=== PATIENT | female | born 1935 | race Caucasian/White ===

== ENCOUNTER 2018-04-29 22:36 | Inpatient (IN) | payer MEDICARE, BC ==
[~2018-04-29] VITALS: Ht 154.9 cm; Wt 54.6 kg
--- NOTE | 2018-04-30 00:14 | NUR ---
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
[2018-04-30 01:07] LABS: BASOPHILS 0.6 % (0-2); EOSINOPHILS 3.2 % (0-7); HEMOGLOBIN 11.1 g/dL (12-16); IMMATURE GRANULOCYTES 0.3 % (0-5); LYMPHOCYTES 14.4 % (15-50); MCH 29.3 pg (26.0-34.0); MCHC 32.6 g/dL (31.0-37.0); MCV 89.7 fL (80.0-100.0); MEAN PLATELET VOLUME 9.3 fL (7.4-10.4); MONOCYTES 13.8 % (2-11); NEUTROPHILS 67.7 % (40-80); RBC 3.79 10x6/uL (4.00-5.40); RDW 14.8 % (11.5-14.5)
[2018-04-30 01:09] LABS: PLATELET COUNT 170 10x3/uL (130-400)
[2018-04-30 01:20] LABS: ANION GAP 19.3 mmol/L (8-16); BILIRUBIN - TOTAL 0.43 mg/dL (0.2-1.3); CALCIUM 8.4 mg/dL (8.5-10.1); CARBON DIOXIDE 24.8 mmol/L (21.0-32.0); CREATININE - SERUM 9.3 mg/dL (0.6-1.3); POTASSIUM - SERUM 5.1 mmol/L (3.5-5.1); PROTEIN - SERUM 6.2 g/dL (6.4-8.2)
--- NOTE | 2018-04-30 01:23 | NUR ---
REPORT GIVEN TO REINA
--- NOTE | 2018-04-30 01:45 | NUR ---
RECEIVED PT FROM ER STAFF. PT IS VERY CONFUSED. PT IS ALERT TO PERSON. BED IN LOW POSITION WITH CALL LIGHT IN REACH. WILL CONTINUE TO MONITOR PT AND FOLLOW PLAN OF CARE.
[2018-04-30 02:42] VITALS: BP 145/73; BMI 27.5
--- NOTE | 2018-04-30 06:41 | NUR ---
PT IS ALERT LAYING IN BED. PT IS COMPLAINING OF RT SHOULDER PAIN AND RT HIP PAIN. WILL PASS THIS INFORMATION AT SHIFT REPORT TO NURSE TO SEE IF ROUNDING DOCTOR WILL ADDRESS. PT IS STILL CONFUSED. PT IS ALERT TO PERSON ONLY. BED IN LOW POSITION WITH CALL LIGHT IN REACH. WILL CONTINUE TO MONITOR PT AND FOLLOW PLAN OF CARE.
--- NOTE | 2018-04-30 08:14 | NUR ---
AM ROUNDS COMPLETED. VSS, PT ORIENTED TO PERSON ONLY. PT CONFUSED, STATES SHE FELL AT HOME AND HER LEFT SHOULDER IS HURTING. WILL NOTIFY HER PROVIDER OF THIS NEW FINDING. PT CURRENTLY RESTING IN BED WILL CTM. CL IN [place]EN[place]Z, BED IN LOW.
--- NOTE | 2018-04-30 13:32 | NUR ---
PT IN DIALYSIS. KAMILAH RANDHAWA, ORDERED NEW MEDS. MEDS WILL BE ADMINISTERED AFTER DIALYSIS. PT DENIES NEED FOR PAIN AT THIS TIME. WILL CPOC. CL IN REACH, BED IN LOW, FAMILY AT BEDSIDE.
[2018-04-30 14:10] VITALS: Ht 154.9 cm; Wt 54.6 kg
--- NOTE | 2018-04-30 16:56 | NUR ---
Rehab Note- Acute Inpatient Rehab prescreen order received. The patient is a LTC resident in a facility in [place]- would recommend d/c back to LTC or SNF when medically stable and ready for discharge. Thank you for this referral! Purvi Crouch RN Clinical Liaison, [facility]
--- NOTE | 2018-04-30 17:06 | NUR ---
PT DIALYSIS COMPLETED. IN AND OUT CATH ORDERED BY THE PROVIDER. PT REFUSED AT THIS TIME. STATES SHE WANTS TO REST. SCD ON PT. ASSESSED PT COLOSTOMY BAG, WNL. EMPTIED THIS AM. WILL CPOC. CL IN REACH, BED IN LOW. SR UP X2. WILL CTM.
--- NOTE | 2018-04-30 17:47 | MORECARE ---
CASE MANAGEMENT DISCHARGE SUMMARY PATIENT: THO SAEZ UNIT: [id number] ADM DATE: 04/30/18 AGE: 83 : 34 SEX: F ROOM/BED: D.2135 AUTHOR: MACARENA PERDOMO PHYSICIAN: REFERRING PHYSICIAN: ALEXA MANCUSO MD DATE OF SERVICE: 04/30/18 Discharge Plan Patient Name: THO SAEZ [facility] [facility] 1935 Planned Disposition: Nursing Facility [facility] Anticipated Discharge Date: Discharge Date: Expected LOS: Initial Reviewer: [email or web address] Initial Review Date: 04/30/2018 Generated: 04/30/18 6:47 pm Patient Name: THO SAEZ Page 43641 at 2492 All edits/amendments must be made on the electronic document DICTATION DATE: 04/30/181746 MICROCOMPUTER TECHNICIAN: MAXIMO 04/30/181746 RPT#: [id number] DC DATE: STATUS: ADM IN [facility] [address] [place] [address] END OF REPORT
--- NOTE | 2018-04-30 17:55 | MORECARE ---
CASE MANAGEMENT DISCHARGE SUMMARY PATIENT: THO SAEZ UNIT: [id number] ADM DATE: 04/30/18 AGE: 83 : 34 SEX: F ROOM/BED: D.2134 AUTHOR: MACARENA PERDOMO PHYSICIAN: REFERRING PHYSICIAN: ALEXA MANCUSO MD DATE OF SERVICE: 04/30/18 Discharge Plan Patient Name: THO SAEZ Facility: [facility]:[place] : 1935 Planned Disposition: Nursing Facility [facility]IO [facility] Anticipated Discharge Date: Discharge Date: Expected LOS: Initial Reviewer: [email or web address] Initial Review Date: 04/30/2018 Generated: 04/30/18 6:55 pm DCPIA - Discharge Planning Initial Assessment Updated by [email or web address]: George Henry on 04/30/18 5:49 pm * Is the patient Alert and Oriented? Yes * How many steps to enter\exit or inside your home? NONE * PCP [facility] [place] * Pharmacy [facility], [place] * Preadmission Environment Chemical Equipment Controller Senior Care * Facility Name [facility], [place] * ADLs Partial Dependent * Partial ADLs (Assistance needed) Ambulation Bathing Dressing Medication Management Transfers * Equipment Walker Wheelchair * Other Equipment ALL MEDICAL EQUIPMENT PROVIDED BY FACILITY * List name and contact numbers for known caregivers / representatives who currently or will assist patient after discharge: SANDY CHINCHILLA DTR, * Verbal permission to speak to the caregivers and representatives has been obtained from the patient. Yes * Community resources currently utilized Other * Please name any agencies selected above. [facility]IENT [facility]IALYSIS, [place], MWF, 1000 AM, RETIREMENT TRANSPORTATION * Additional services required to return to the preadmission environment? No * Can the patient safely return to the preadmission environment? Yes * Has this patient been hospitalized within the prior 30 days at any hospital? No Last DP export: 04/30/18 4:47 pm Patient Name: THO SAEZ Page 63526 at 1816 All edits/amendments must be made on the electronic document DICTATION DATE: 04/30/181753 AIR MOVING TECHNICIAN: MAXIMO 04/30/181753 RPT#: [id number] DC DATE: STATUS: ADM IN [facility] [address] [facility] [place] [address] END OF REPORT
--- NOTE | 2018-04-30 18:04 | MORECARE ---
CASE MANAGEMENT DISCHARGE SUMMARY PATIENT: THO SAEZ UNIT: [id number] ADM DATE: 04/30/18 AGE: 83 : 34 SEX: F ROOM/BED: D.8246 AUTHOR: LEANNE,DOC PHYSICIAN: REFERRING PHYSICIAN: ALEXA MANCUSO MD DATE OF SERVICE: 04/30/18 Discharge Plan Patient Name: THO SAEZ Facility: [facility]:[place] : 1935 Planned Disposition: Nursing Facility [facility] Cert Anticipated Discharge Date: Discharge Date: Expected LOS: Initial Reviewer: [email or web address] Initial Review Date: 04/30/2018 Generated: 04/30/18 7:04 pm Comments DCP- Discharge Planning Updated by [email or web address]: George Henry on 04/30/18 4:[address] Patient Name: THO SAEZ Admission Status: ER Accout number: [id number] Admission Date: 04-30-2018 : 1935 Admission Diagnosis: Attending: ALEXA MANCUSO Current LOS: 1 Anticipated DC Date: Planned Disposition: Nursing Facility [facility] Cert Primary Insurance: MEDICARE A & B PLANNED EXTERNAL PROVIDER: [facility], MEDICARE REHAB BED Discharge Planning Comments: CM RECEIVED ORDER FOR INPATIENT REHAB PRESCREEN. CM MET WITH PT AND DAUGHTER IN LAW IN ROOM TO DISCUSS DISCHARGE PLANNING AND NEEDS. THO SAEZ provided verbal consent to discuss current and ongoing needs with/in the presence of: TERA IN LAW, CLAUDIA FERRARO. PT REPORTS LIVING AT [facility] FOR PAST 4 YEARS PT HAS WALKER AND WHEELCHAIR, PT TRANSFERS TO WHEELCHAIR WITH HELP AND WALKS VERY LITTLE. PT'S DAUGHTER IN LAW REPORTS THE ALF WAS TRYING TO GET PT TO WALK MORE AND STAY OUT OF THE WHEELCHAIR MUCH POSSIBLE. CM DISCUSSED AVAILABILITY OF HOME HEALTH, REHAB SERVICES AND MEDICAL EQUIPMENT. PT REPORTS SHE CAN AND DOES GET REHAB AT [facility] AND WILL RETURN THERE AT DISCHARGE. PT'S DAUGHTER IN LAW AGREES AND WOULD LIKE FOR PT TO RECEIVE THERAPY AT THE ALF IF SHE QUALIFIES FOR IT. [facility] TO PROVIDE TRANSPORT FOR DISCHARGE BACK TO THE ALF. PT GOES TO DIALYSIS IN [place] ON MWF, 1000AM SCHEDULE, TRANSPORTED BY ALF. CM CALLED AN AT [facility], , WHO VERIFIED PT IS IN STEAM TURBINE OPERATOR CARE AND WILL RETURN TO SKILLED BED AT DISCHARGE. FOR DISCHARGE TO SKILLED BED AT [facility], FAX DISCHARGE INSTRUCTIONS TO [facility] AT [phone]. NURSE REPORT TO BE CALLED TO [facility] AT [phone]. PT TO TRANSPORT VIA ALF VAN. Laser Beam Color Scanner Operator: George Henry DCPIA - Discharge Planning Initial Assessment Updated by [id number]: George Henry on 04/30/18 5:49 pm * Is the patient Alert and Oriented? Yes * How many steps to enter\exit or inside your home? NONE * PCP [facility], [place] * [facility] [place] * Preadmission Environment Longterm Assisted * Facility Name [facility], [place] * ADLs Partial Dependent * Partial ADLs (Assistance needed) Ambulation Bathing Dressing Medication Management Transfers * Equipment Walker Wheelchair * Other Equipment ALL MEDICAL EQUIPMENT PROVIDED BY FACILITY * List name and contact numbers for known caregivers / representatives who currently or will assist patient after discharge: SANDY CHINCHILLA DTR, * Verbal permission to speak to the caregivers and representatives has been obtained from the patient. Yes * Community resources currently utilized Other * Please name any agencies selected above. OUTPATIENT DIALYSIS, [place], MWF, 1000 AM, ALF TRANSPORTATION * Additional services required to return to the preadmission environment? No * Can the patient safely return to the preadmission environment? Yes * Has this patient been hospitalized within the prior 30 days at any hospital? No Last DP export: 04/30/18 4:55 pm Patient Name: THO SAEZ Page 41287 at 1804 All edits/amendments must be made on the electronic document DICTATION DATE: 04/30/181802 GEODETIC ADVISOR: MAXIMO 04/30/181802 RPT#: [id number] [place] DATE: STATUS: ADM IN [facility] [address] [place] [address] END OF REPORT
--- NOTE | 2018-04-30 19:06 | NUR ---
Received patient in bed resting, oxygen not on, on room air, pulse ox = 92% Alert and oriented to person only, not to place, time, or situation. Colostomy bag in place. Telemetry on, rhythm SR, HR in the 70s/min. Has Left forearm fistula with dressing C/D/I. PIV in underside of right wrist. Has oxygen off, on rrom air, pulse ox = 92% No voiced concerns at this time. Respirations easy and regular, no signs of distress.
--- NOTE | 2018-04-30 23:25 | NUR ---
Resting quietly in bed, eyes closed, respirations easy and regular, deemed to0m be sleeping.
[2018-05-01] VITALS: BP 126/76
[2018-05-01 04:00] VITALS: BP 156/78
[2018-05-01 06:18] LABS: HEMATOCRIT 37.2 % (36.0-48.0); HEMOGLOBIN 12.5 g/dL (12-16); LYMPHOCYTES 13.8 % (15-50); MCH 30.7 pg (26.0-34.0); MCHC 33.6 g/dL (31.0-37.0); MCV 91.4 fL (80.0-100.0); MEAN PLATELET VOLUME 10.6 fL (7.4-10.4); NEUTROPHILS 76.8 % (40-80); PLATELET COUNT 156 10x3/uL (130-400); RBC 4.07 10x6/uL (4.00-5.40); RDW 14.8 % (11.5-14.5)
[2018-05-01 06:25] LABS: WBC 9.3 10x3/uL (4.8-10.8)
[2018-05-01 08:15] VITALS: BP 134/50
[2018-05-01 09:12] LABS: ALBUMIN 3.4 g/dL (3.4-5.0); BILIRUBIN - TOTAL 0.58 mg/dL (0.2-1.3); CARBON DIOXIDE 24.6 mmol/L (21.0-32.0); CREATININE - SERUM 7.6 mg/dL (0.6-1.3); MAGNESIUM - SERUM 2.1 mg/dL (1.8-2.4); POTASSIUM - SERUM 4.6 mmol/L (3.5-5.1); PROTEIN - SERUM 6.7 g/dL (6.4-8.2)
--- NOTE | 2018-05-01 09:21 | NUR ---
NO NEEDS OR C/O VOICED. CALL LIGHT IN REACH. WILL MONITOR.
--- NOTE | 2018-05-01 10:10 | NUR ---
PATIENT HAS FREQUENT COUGH. FAMILY SAYS IT STARTED FRIDAY. PATIENT C/O RIGHT SIDE PAIN WITH COUGH. EXPIRATORY WHEEZES HEARD IN RUL.
--- NOTE | 2018-05-01 11:32 | CN ---
PATIENT NAME:THO SAEZ MEDICAL RECORD: [id number] : 33 LOCATION:[facility] D.2135 ADMIT DATE: 04/30/18 ACCOUNT: [id number] CONSULTING PHYSICIAN: JAMISON ASH MD REFERRING PHYSICIAN: ALEXA MANCUSO MD DATE OF CONSULTATION: 04/30/2018 IDENTIFYING DATA: The patient is 83 years old and she is admitted to the hospital on a voluntary basis. CHIEF COMPLAINT: Confusion. HISTORY OF PRESENT ILLNESS: The patient is here from a halfway. She apparently has end-stage renal disease and is receiving dialysis. She has been acutely confused. She has limited insight. She does have a history of stroke as well as a preexisting diagnosis of dementia. MENTAL STATUS EXAMINATION: The patient is partially oriented. She is cooperative, but not out of control. She has no thoughts of harming herself or others. The patient is not acutely dangerous, but does need supervision. There are no psychotic symptoms and no thoughts of harming herself or others. ASSESSMENT: Dementia, type uncertain, probably vascular in nature. PLAN: The patient should be started on a cholinesterase inhibitor once medically stabilized and transferred back to the halfway. Obviously, given her advanced age, the presence of renal disease, established diagnosis of dementia, history of stroke, hypothyroidism, and hypertension, her prognosis in the long run is not good, but she clearly is in an environment where she receives 01-frsa-i-day care and there is no acute evidence of dangerousness now. She would not meet any kind of criteria for an inpatient psychiatric stay. Follow up should be with her primary care physician. TRANSINT:[id number] Voice Confirmation ID: [id number] DOCUMENT ID: [id number] JAMISON ASH MD at 1132 CC: [id number] DICTATION DATE: 04/30/18 1549 PRISON PSYCHIATRIST: 04/30/18 1656 ADM IN [place] [id number] [place] [address]
[2018-05-01 11:41] VITALS: BP 142/76
--- NOTE | 2018-05-01 14:36 | MORECARE ---
CASE MANAGEMENT DISCHARGE SUMMARY PATIENT: THO SAEZ UNIT: [id number] ADM DATE: 04/30/18 AGE: 83 : 34 SEX: F ROOM/BED: D.5274 AUTHOR: LEANNE,DOC PHYSICIAN: REFERRING PHYSICIAN: ALEXA MANCUSO MD DATE OF SERVICE: 05/01/18 Discharge Plan Patient Name: THO SAEZ Facility: [facility]:[place] : 1935 Planned Disposition: Longterm Facility Anticipated Discharge Date: 05/01/18 Discharge Date: Expected LOS: 1 Initial Reviewer: [id number] Initial Review Date: 04/30/2018 Generated: 05/01/18 3:36 pm Comments DCP- Discharge Planning Updated by [email or web address]: George Henry on 04/30/18 4:[address] Patient Name: THO SAEZ Admission Status: ER Accout number: [id number] Admission Date: 04-30-2018 : 1935 Admission Diagnosis: Attending: ALEXA MANCUSO Current LOS: 1 Anticipated DC Date: Planned Disposition: Nursing Facility [facility] Cert Primary Insurance: MEDICARE A & B PLANNED EXTERNAL PROVIDER: [facility], MEDICARE REHAB BED Discharge Planning Comments: CM RECEIVED ORDER FOR INPATIENT REHAB PRESCREEN. CM MET WITH PT AND DAUGHTER IN LAW IN ROOM TO DISCUSS DISCHARGE PLANNING AND NEEDS. THO SAEZ provided verbal consent to discuss current and ongoing needs with/in the presence of: TERA IN LAW, CLAUDIA FERRARO. PT REPORTS LIVING AT [facility] FOR PAST 4 YEARS PT HAS WALKER AND WHEELCHAIR, PT TRANSFERS TO WHEELCHAIR WITH HELP AND WALKS VERY LITTLE. PT'S DAUGHTER IN LAW REPORTS THE [facility] WAS TRYING TO GET PT TO WALK MORE AND STAY OUT OF THE WHEELCHAIR MUCH POSSIBLE. CM DISCUSSED AVAILABILITY OF HOME HEALTH, REHAB SERVICES AND MEDICAL EQUIPMENT. PT REPORTS SHE CAN AND DOES GET [facility]AB AT [facility] AND WILL RETURN THERE AT DISCHARGE. PT'S DAUGHTER IN LAW AGREES AND WOULD LIKE FOR PT TO RECEIVE THERAPY AT THE [facility] IF SHE QUALIFIES FOR IT. [facility] TO PROVIDE TRANSPORT FOR DISCHARGE BACK TO THE [facility]. PT GOES TO DIALYSIS IN [place] ON MWF, 1000AM SCHEDULE, TRANSPORTED BY [facility]. CM CALLED AN AT [facility], , WHO VERIFIED PT IS IN CARE HOME CARE AND WILL RETURN TO SKILLED BED AT DISCHARGE. FOR DISCHARGE TO SKILLED BED AT [facility], FAX DISCHARGE INSTRUCTIONS TO [facility] AT [phone]. NURSE REPORT TO BE CALLED TO [facility] AT [phone]. PT TO TRANSPORT VIA [facility] VAN. Boring Mill Operator: George Henry DCPIA - Discharge Planning Initial Assessment Updated by [id number]: George Henry on 04/30/18 5:49 pm * Is the patient Alert and Oriented? Yes * How many steps to enter\exit or inside your home? NONE * PCP [facility], [place] * Pharm[facility] [place] * Preadmission Environment Capsule Maker Detention * Facility Name [facility] [place] * ADLs Partial Dependent * Partial ADLs (Assistance needed) Ambulation Bathing Dressing Medication Management Transfers * Equipment Walker Wheelchair * Other Equipment ALL MEDICAL EQUIPMENT PROVIDED BY FACILITY * List name and contact numbers for known caregivers / representatives who currently or will assist patient after discharge: SANDY CHINCHILLA DTR, * Verbal permission to speak to the caregivers and representatives has been obtained from the patient. Yes * Community resources currently utilized Other * Please name any agencies selected above. OUTPATIENT DIALYSIS, [place], MWF, 1000 AM, [facility] TRANSPORTATION * Additional services required to return to the preadmission environment? No * Can the patient safely return to the preadmission environment? Yes * Has this patient been hospitalized within the prior 30 days at any hospital? No External Providers External Provider: [facility] Next Contact Date: 05/01/2018 Service Request Date: Service Type: Resolution: Reviewer: Comments: Last DP export: 04/30/18 5:04 pm Patient Name: THO SAEZ Page 70395 at 1436 All edits/amendments must be made on the electronic document DICTATION DATE: 05/01/181434 AUTO REFINISHER: MAXIMO 05/01/181434 RPT#: [id number] [place] DATE: STATUS: ADM IN [facility] [address] [place] [address] END OF REPORT
--- NOTE | 2018-05-01 15:58 | MORECARE ---
CASE MANAGEMENT DISCHARGE SUMMARY PATIENT: THO SAEZ UNIT: [id number] ADM DATE: 04/30/18 AGE: 83 : 34 SEX: F ROOM/BED: D.7298 AUTHOR: LEANNE,DOC PHYSICIAN: REFERRING PHYSICIAN: ALEXA MANCUSO MD DATE OF SERVICE: 05/01/18 Discharge Plan Patient Name: THO SAEZ Facility: [facility]:[place] : 1935 Planned Disposition: [facility]sp Facility Anticipated Discharge Date: 05/02/18 Discharge Date: Expected LOS: 2 Initial Reviewer: [email or web address] Initial Review Date: 04/30/2018 Generated: 05/01/18 4:57 pm Comments DCP- Discharge Planning Updated by [id number]: George Henry on 04/30/18 4:[address] Patient Name: THO SAEZ Admission Status: ER Accout number: [id number] Admission Date: 04-30-2018 : 1935 Admission Diagnosis: Attending: ALEXA MANCUSO Current LOS: 1 Anticipated DC Date: Planned Disposition: Nursing Facility [facility] Cert Primary Insurance: MEDICARE A & B PLANNED EXTERNAL PROVIDER: [facility], MEDICARE REHAB BED Discharge Planning Comments: CM RECEIVED ORDER FOR INPATIENT REHAB PRESCREEN. CM MET WITH PT AND DAUGHTER IN LAW IN ROOM TO DISCUSS DISCHARGE PLANNING AND NEEDS. THO SAEZ provided verbal consent to discuss current and ongoing needs with/in the presence of: TERA IN LAW, CLAUDIA FERRARO. PT REPORTS LIVING AT [facility] FOR PAST 4 YEARS PT HAS WALKER AND WHEELCHAIR, PT TRANSFERS TO WHEELCHAIR WITH HELP AND WALKS VERY LITTLE. PT'S DAUGHTER IN LAW REPORTS THE ALF WAS TRYING TO GET PT TO WALK MORE AND STAY OUT OF THE WHEELCHAIR MUCH POSSIBLE. CM DISCUSSED AVAILABILITY OF HOME HEALTH, REHAB SERVICES AND MEDICAL EQUIPMENT. PT REPORTS SHE CAN AND DOES GET REHAB AT [facility] AND WILL RETURN THERE AT DISCHARGE. PT'S DAUGHTER IN LAW AGREES AND WOULD LIKE FOR PT TO RECEIVE THERAPY AT THE ALF IF SHE QUALIFIES FOR IT. [facility] TO PROVIDE TRANSPORT FOR DISCHARGE BACK TO THE ALF. PT GOES TO DIALYSIS IN [place] ON MWF, 1000AM SCHEDULE, TRANSPORTED BY ALF. CM CALLED AN AT [facility], , WHO VERIFIED PT IS IN DETENTION CARE AND WILL RETURN TO SKILLED BED AT DISCHARGE. FOR DISCHARGE TO SKILLED BED AT [facility], FAX DISCHARGE INSTRUCTIONS TO [facility] AT [phone]. NURSE REPORT TO BE CALLED TO [facility] AT [phone]. PT TO TRANSPORT VIA ALF VAN. Modeling Agency Manager: George Henry DCPIA - Discharge Planning Initial Assessment Updated by [email or web address]: George Henry on 04/30/18 5:49 pm * Is the patient Alert and Oriented? Yes * How many steps to enter\exit or inside your home? NONE * PCP [facility] [place] * Pharm[facility] [place] * Preadmission Environment Waste Chopper Long-Term * Facility Name [facility] [place] * ADLs Partial Dependent * Partial ADLs (Assistance needed) Ambulation Bathing Dressing Medication Management Transfers * Equipment Walker Wheelchair * Other Equipment ALL MEDICAL EQUIPMENT PROVIDED BY FACILITY * List name and contact numbers for known caregivers / representatives who currently or will assist patient after discharge: SANDY CHINCHILLA DTR, * Verbal permission to speak to the caregivers and representatives has been obtained from the patient. Yes * Community resources currently utilized Other * Please name any agencies selected above. OUTPATIENT DIALYSIS, [place], MWF, 1000 AM, ALF TRANSPORTATION * Additional services required to return to the preadmission environment? No * Can the patient safely return to the preadmission environment? Yes * Has this patient been hospitalized within the prior 30 days at any hospital? No Last DP export: 05/01/18 1:36 pm Patient Name: THO SAEZ Page 14607 at 1558 All edits/amendments must be made on the electronic document DICTATION DATE: 05/01/181556 PRESS BOX CUSTODIAN: MAXIMO 05/01/181556 RPT#: [id number] [place] DATE: STATUS: ADM IN [facility] [address] [place] [address] END OF REPORT
--- NOTE | 2018-05-01 16:07 | MORECARE ---
CASE MANAGEMENT DISCHARGE SUMMARY PATIENT: THO SAEZ UNIT: [id number] ADM DATE: 04/30/18 AGE: 83 : 34 SEX: F ROOM/BED: D.8712 AUTHOR: LEANNE,DOC PHYSICIAN: REFERRING PHYSICIAN: ALEXA MANCUSO MD DATE OF SERVICE: 05/01/18 Discharge Plan Patient Name: THO SAEZ Facility: [facility]:[place] : 1935 Planned Disposition: Long-Term Facility Anticipated Discharge Date: 05/02/18 Discharge Date: Expected LOS: 2 Initial Reviewer: [id number] Initial Review Date: 04/30/2018 Generated: 05/01/18 5:06 pm Comments DCP- Discharge Planning Updated by [id number]: George Henry on 05/01/18 2:[address] Patient Name: THO SAEZ Admission Status: ER Accout number: [id number] Admission Date: 04-30-2018 : 1935 Admission Diagnosis:DISORIENTATION, UNSPECIFIED Attending: ALEXA MANCUSO Current LOS: 1 Anticipated DC Date: 05-02-2018 Planned Disposition: Long-Term Facility Primary Insurance: MEDICARE A & B PLANNED EXTERNAL PROVIDER:[facility], MEDICARE REHAB BED Discharge Planning Comments: CM SPOKE TO DR. HARRIS WHO INFORMED CM THAT PLANNED DISCHARGE IS FOR TOMORROW AFTER DIALYSIS. CM SPOKE TO PT IN ROOM, PT REPORTS SHE IS READY TO RETURN TO THE [facility] TOMORROW. IMPORTANT MESSAGE FROM MEDICARE PROVIDED AND EXPLAINED. CM CALLED YING AT [facility], , WHO VERIFIED PT WILL RETURN TO SKILLED BED AT DISCHARGE AND [facility] CAN ONLY ROTARY SHEAR CUTTER AT AROUND 1300 HOURS TOMORROW. RN [facility] CALLED DIALYSIS UNIT AND ENSURED PT IS NO THE LIST FOR EARLY DIALYSIS SHIFT IN THE MORNING. CM FAXED UPDATE TO [facility] AT [phone]. FOR DISCHARGE TO SKILLED BED AT [facility], FAX DISCHARGE INSTRUCTIONS TO [facility] AT [phone]. NURSE REPORT TO BE CALLED TO [facility] AT [phone]. PT TO TRANSPORT VIA [facility]. Baker Doughnut: George Henry DCP- Discharge Planning Updated by [id number]: George Henry on 04/30/18 4:[address] Patient Name: THO SAEZ Admission Status: ER Accout number: [id number] Admission Date: 04-30-2018 : 1935 Admission Diagnosis: Attending: ALEXA MANCUSO Current LOS: 1 Anticipated DC Date: Planned Disposition: Nursing Facility [facility] Primary Insurance: MEDICARE A & B PLANNED EXTERNAL PROVIDER: [facility], MEDICARE REHAB BED Discharge Planning Comments: CM RECEIVED ORDER FOR INPATIENT REHAB PRESCREEN. CM MET WITH PT AND DAUGHTER IN LAW IN ROOM TO DISCUSS DISCHARGE PLANNING AND NEEDS. THO SAEZ provided verbal consent to discuss current and ongoing needs with/in the presence of: DAUGHER IN LAW, CLAUDIA FERRARO. PT REPORTS LIVING AT [facility] FOR PAST 4 YEARS PT HAS WALKER AND WHEELCHAIR, PT TRANSFERS TO WHEELCHAIR WITH HELP AND WALKS VERY LITTLE. PT'S DAUGHTER IN LAW REPORTS THE [facility] WAS TRYING TO GET PT TO WALK MORE AND STAY OUT OF THE WHEELCHAIR MUCH POSSIBLE. CM DISCUSSED AVAILABILITY OF HOME HEALTH, REHAB SERVICES AND MEDICAL EQUIPMENT. PT REPORTS SHE CAN AND DOES GET REHAB AT [facility] AND WILL RETURN THERE AT DISCHARGE. PT'S DAUGHTER IN LAW AGREES AND WOULD LIKE FOR PT TO RECEIVE THERAPY AT THE [facility] IF SHE QUALIFIES FOR IT. [facility] TO PROVIDE TRANSPORT FOR DISCHARGE BACK TO THE [facility]. PT GOES TO DIALYSIS IN [place] ON MWF, 1000AM SCHEDULE, TRANSPORTED BY [facility]. CM CALLED AN AT [facility], , WHO VERIFIED PT IS IN MEMBERSHIP CORRESPONDENT CARE AND WILL RETURN TO SKILLED BED AT DISCHARGE. FOR DISCHARGE TO SKILLED BED AT [facility], FAX DISCHARGE INSTRUCTIONS TO [facility] AT [phone]. NURSE REPORT TO BE CALLED TO [facility] AT [phone]. PT TO TRANSPORT VIA [facility]. Baker Doughnut: George Henry DCPIA - Discharge Planning Initial Assessment Updated by [id number]: George Henry on 04/30/18 5:49 pm * Is the patient Alert and Oriented? Yes * How many steps to enter\exit or inside your home? NONE * PCP [facility], [place] * Pharmacy [facility], [place] * Preadmission Environment Director Of Product Design Senior Care * Facility Name [facility] * ADLs Partial Dependent * Partial ADLs (Assistance needed) Ambulation Bathing Dressing Medication Management Transfers * Equipment Walker Wheelchair * Other Equipment ALL MEDICAL EQUIPMENT PROVIDED BY FACILITY * List name and contact numbers for known caregivers / representatives who currently or will assist patient after discharge: SANDY CHINCHILLA DTR, * Verbal permission to speak to the caregivers and representatives has been obtained from the patient. Yes * Community resources currently utilized Other * Please name any agencies selected above. OUTPATIENT DIALYSIS, [place], MWF, 1000 AM, [facility] TRANSPORTATION * Additional services required to return to the preadmission environment? No * Can the patient safely return to the preadmission environment? Yes * Has this patient been hospitalized within the prior 30 days at any hospital? No Last DP export: 05/01/18 2:57 pm Patient Name: THO SAEZ Page [id number] at 1607 All edits/amendments must be made on the electronic document DICTATION DATE: 05/01/181605 LANGUAGE TEACHER: MAXIMO 05/01/181605 RPT#: [id number] DC DATE: STATUS: ADM IN [facility] [address] [place] [address] END OF REPORT
[2018-05-01] MEDS ORDERED: NORVASC5 MG PO (16:29)
[2018-05-01] MEDS ORDERED: QUESTRAN PACKET PO (16:29)
[2018-05-01] MEDS ORDERED: PHOSLO667 MG PO (16:30)
[2018-05-01] MEDS ORDERED: MIRAPEX0.125 MG PO (16:30)
[2018-05-01] MEDS ORDERED: SYNTHROID200 MC1 PO (16:30)
[2018-05-01] MEDS ORDERED: ARICEPT23 MG PO (17:00)
[2018-05-01 18:10] LABS: HEPATITIS C ANTIBODY <0.1 S/CO RAT (0.0-0.9)
--- NOTE | 2018-05-01 19:54 | NUR ---
SPOKE TO CASSIA, PATIENT'S DAUGHTER. SHE CALLED [facility]. THEY TOLD HER THAT THEY DO NOT HAVE A VAN THAT TRANSPORTS ON SATURDAYS. PASSED OFF AT SHIFT CHANGE TO PLEASE CONFIRM TRANSPORT TONIGHT OR IN THE MORNING AND CALL CASSIA AT [phone]. CASSIA SAID SHE WOULD COME PICK HER UP AND TAKE HER TO [facility] IN [place] IF SHE NEEDS TO BUT IT IS A [address]
[2018-05-01 20:00] VITALS: BP 133/69
[2018-05-01] MEDS ORDERED: BAYER CHEWABLE81 MG PO (20:01)
[2018-05-01] MEDS ORDERED: MELATONIN 3 MG1 TAB PO (20:02)
[2018-05-01] MEDS ORDERED: NAMENDA10 MG PO (20:12)
--- NOTE | 2018-05-01 20:12 | NUR ---
RECIEVED REPORT AT 2005 FROM [facility]. PT ALERT AND DISORIENTED X4. BED ALARM NOT ON, WILL ENFORCE FALL PRECAUTIONS AND PUT BED ALARM ON. PT STATES THAT SHE IS "AT [place]." REORIENTED TO PLACE AND PERSON AND SITUATION. OTHERWISE PT SEEMS PLEASANT AND DENIES ANY PAIN/DISCOMFORT/NEEDS. WCTM AND FOLLOW POC. CL IN REACH, SR UP X2, BED IN LOWEST POSITION.
[2018-05-01] MEDS ORDERED: RENA-VITE TABL0.8 MG PO (20:13)
[2018-05-01] MEDS ORDERED: PROTONIX20 MG PO (20:13)
[2018-05-01] MEDS ORDERED: XALATAN 0.0052.5 ML EACH EYE (20:14)
--- NOTE | 2018-05-01 22:00 | NUR ---
WAS TOLD IN REPORT THAT PT COLOSTOMY BAG WAS "CHANGED AT SHIFT CHANGE." TO PT ROOM TO ADMINISTER MEDS AND THERE WAS A VERY ODOROUS SMELL COMING FROM PT'S ROOM. UNCOVERED PT TO ASSESS AND COLOSTOMY BAG FELL OFF AND FECES SPILLED ALL OVER PT. CLEANED PT UP AND REPLACED LINENS. CLEANED STOMA AND APPLIED BARRIER CREAM AND ADHESIVE WELL A NEW BAG. PT CLEAN AND DRY, STOMA PINK WITH RAISED EDGES. COMPLETED MED PASS AND PT TOLERATED WELL. NO FURTHER NEEDS NOTED AT THIS TIME. WCTM AND FOLLOW POC. CL IN REACH, SR UP X2, BED IN LOWEST POSITION AND BED ALARM ON. FALLE PRECUATIONS IN USE.
[2018-05-02 00:27] VITALS: BP 139/64
--- NOTE | 2018-05-02 05:00 | NUR ---
TO PT ROOM VIA CALL LIGHT. PT STATES "WHERE AM I AT? IS THIS MY ROOM?" REORIENTED PT THAT IT WAS [facility] AND THAT SHE WAS IN THE HOSPITAL AND IN HER ROOM. ENCOURAGED PT TO CONTINUE RESTING BECAUSE SHE WAS GOING TO BE DC'D TO HER NURSING FACILITY THIS AFTERNOON. PT VERBALIZED UNDERSTANDING AND RESTING COMFORTABLY IN BED. RR EVEN AND UL, NO S/S OF DISTRESS. CL IN REACH, SR UPX2, BED IN LOWEST POSITION AND BED ALARM ON. NO OTHER NEEDS NOTED AT THIS TIME.
[2018-05-02 05:02] VITALS: BP 110/56
[2018-05-02 05:02] LABS: BASOPHILS 0.6 % (0-2); EOSINOPHILS 1.6 % (0-7); HEMATOCRIT 36.9 % (36.0-48.0); HEMOGLOBIN 12.1 g/dL (12-16); IMMATURE GRANULOCYTES 0.3 % (0-5); LYMPHOCYTES 16.3 % (15-50); MCH 29.9 pg (26.0-34.0); MCHC 32.8 g/dL (31.0-37.0); MCV 91.1 fL (80.0-100.0); MEAN PLATELET VOLUME 10.2 fL (7.4-10.4); MONOCYTES 14.5 % (2-11); NEUTROPHILS 66.7 % (40-80); RBC 4.05 10x6/uL (4.00-5.40); WBC 10.1 10x3/uL (4.8-10.8)
[2018-05-02 05:06] LABS: PLATELET COUNT 203 10x3/uL (130-400)
[2018-05-02 05:16] LABS: ALBUMIN 2.9 g/dL (3.4-5.0); ANION GAP 16.3 mmol/L (8-16); BILIRUBIN - TOTAL 0.45 mg/dL (0.2-1.3); CALCIUM 8.9 mg/dL (8.5-10.1); CARBON DIOXIDE 27.2 mmol/L (21.0-32.0); CREATININE - SERUM 9.6 mg/dL (0.6-1.3); MAGNESIUM - SERUM 2.3 mg/dL (1.8-2.4); POTASSIUM - SERUM 4.5 mmol/L (3.5-5.1)
[2018-05-02 07:26] LABS: HEPATITIS BE ANTIGEN Negative (Negative)
[2018-05-02 07:55] VITALS: BP 125/65
--- NOTE | 2018-05-02 08:50 | NUR ---
PT TAKEN TO DIALYSIS VIA BED.
--- NOTE | 2018-05-02 10:06 | NUR ---
CALLED [facility] TO CONFIRM TRANSPORTATION UPON DISCHARGE. THEIR VAN SERVICE WILL BE PROVIDING A VAN AFTER 11AM. WILL HAVE PRIMARY NURSE CALL NURSE REPORT TO [facility] WHEN READY.
--- NOTE | 2018-05-02 11:30 | NUR ---
REPORT CALLED TO JUAN KAY AT [facility]. SHE STATES TELEVISION SERVICE ENGINEER IS ON THERE WAY TO PICK PT UP.
[2018-05-02] MEDS ORDERED: Levaquin PO (12:40)
--- NOTE | 2018-05-02 12:56 | NUR ---
PT RETURNED FROM DIALYSIS THEY REMOVED 1L OF FLUID.
--- NOTE | 2018-05-02 13:16 | NUR ---
[facility] WANTING CHEST XR FAXED TO THEM BUT NURSE STATES SHE IS NOT SURE IF MACHINE IS WORKING. SHE GAVE ME FAX NUMBER [phone]. I STATED TO HER WHEN I GET THE RESULTS I WILL FAX IT TO THEM. SHE VERBALIZED UNDERSTANDING.
--- NOTE | 2018-05-02 13:38 | NUR ---
RESTING QUIETLY NAD NOTED
--- NOTE | 2018-05-02 13:49 | NUR ---
PT UNABLE TO SIGN DC PAPERS. RIGHT FA/WRIST IV DC'D WITH CATH INTACT. TELEMETRY DC'D. PT DRESSED AND PAINT PREP TECHNICIAN FROM [employer] TOOK PT IN WC.
--- NOTE | 2018-05-02 13:59 | NUR ---
CHEST XRAY FROM 2011 AND TODAY'S FAXED TO [facility].
--- NOTE | 2018-05-04 11:02 | MORECARE ---
CASE MANAGEMENT DISCHARGE SUMMARY PATIENT: THO SAEZ UNIT: [id number] ADM DATE: 04/30/18 AGE: 83 : 34 SEX: F ROOM/BED: D.4271 AUTHOR: LEANNE,DOC PHYSICIAN: REFERRING PHYSICIAN: ALEXA MANCUSO MD DATE OF SERVICE: 05/04/18 Discharge Plan Patient Name: THO SAEZ Facility: [facility]:[place] : 1935 Planned Disposition: Correction Facility Anticipated Discharge Date: 05/02/18 Discharge Date: 05/02/2018 Expected LOS: 2 Initial Reviewer: [id number] Initial Review Date: 04/30/2018 Generated: 05/04/18 12:02 pm Comments DCP- Discharge Planning Updated by [id number]: George Henry on 05/01/18 2:[address] Patient Name: THO SAEZ Admission Status: ER Accout number: [id number] Admission Date: 04-30-2018 : 1935 Admission Diagnosis:DISORIENTATION, UNSPECIFIED Attending: ALEXA MANCUSO Current LOS: 1 Anticipated DC Date: 05-02-2018 Planned Disposition: Correction Facility Primary Insurance: MEDICARE A & B PLANNED EXTERNAL PROVIDER:[facility], MEDICARE REHAB BED Discharge Planning Comments: CM SPOKE TO DR. HARRIS WHO INFORMED CM THAT PLANNED DISCHARGE IS FOR TOMORROW AFTER DIALYSIS. CM SPOKE TO PT IN ROOM, PT REPORTS SHE IS READ[facility]. IMPORTANT MESSAGE FROM MEDICARE PROVIDED AND EXPLAINED. CM CALLED YING AT [facility], , WHO VERIFIED PT WILL RETURN TO SKILLED BED AT DISCHARGE AND [facility] CAN ONLY DRUPAL DEVELOPER AT AROUND 1300 HOURS TOMORROW. RN [facility] CALLED DIALYSIS UNIT AND ENSURED PT IS NO THE LIST FOR EARLY DIALYSIS SHIFT IN THE MORNING. CM FAXED UPDATE TO [facility] AT [phone]. FOR DISCHARGE TO SKILLED BED AT [facility], FAX DISCHARGE INSTRUCTIONS TO [facility] AT [phone]. NURSE REPORT TO BE CALLED TO [facility] AT [phone]. PT TO [facility]SPORT VIA [facility]. Supervisor Blood Donor Recruiters: George Henry DCP- Discharge Planning Updated by [id number]: George Henry on 04/30/18 4:[address] Patient Name: THO SAEZ Admission Status: ER Accout number: [id number] Admission Date: 04-30-2018 : 1935 Admission Diagnosis: Attending: ALEXA MANCUSO Current LOS: 1 Anticipated DC Date: Planned Disposition: Nursing Facility [facility] Cert Primary Insurance: MEDICARE A & B PLANNED EXTERNAL PROVIDER: [facility], MEDICARE REHAB BED Discharge Planning Comments: CM RECEIVED ORDER FOR INPATIENT REHAB PRESCREEN. CM MET WITH PT AND DAUGHTER IN LAW IN ROOM TO DISCUSS DISCHARGE PLANNING AND NEEDS. THO SAEZ provided verbal consent to discuss current and ongoing needs with/in the presence of: DAUGHER IN LAW, CLAUDIA FERRARO. PT REPORTS LIVING AT [facility] FOR PAST 4 YEARS PT HAS WALKER AND WHEELCHAIR, PT TRANSFERS TO WHEELCHAIR WITH HELP AND WALKS VERY LITTLE. PT'S DAUGHTER IN LAW REPORTS THE [facility] WAS TRYING TO GET PT TO WALK MORE AND STAY OUT OF THE WHEELCHAIR MUCH POSSIBLE. CM DISCUSSED AVAILABILITY OF HOME HEALTH, REHAB SERVICES AND MEDICAL EQUIPMENT. PT REPORTS SHE CAN AND DOES GET REHAB AT [facility] AND WILL RETURN THERE AT DISCHARGE. PT'S DAUGHTER IN LAW AGREES AND WOULD LIKE FOR PT TO RECEIVE THERAPY AT THE [facility] IF SHE QUALIFIES FOR IT. [facility] TO PROVIDE TRANSPORT FOR DISCHARGE BACK TO THE [facility]. PT GOES TO DIALYSIS IN [place] ON MWF, 1000AM SCHEDULE, TRANSPORTED BY [facility]. CM CALLED AN AT [facility], , WHO VERIFIED PT IS IN PRODUCTION LEAD CARE AND WILL RETURN TO SKILLED BED AT DISCHARGE. FOR DISCHARGE TO SKILLED BED AT [facility], FAX DISCHARGE INSTRUCTIONS TO [facility] AT [phone]. NURSE REPORT TO BE CALLED TO [facility] AT [phone]. PT TO TRANSPORT VIA [facility]. Supervisor Blood Donor Recruiters: George Henry DCPIA - Discharge Planning Initial Assessment Updated by [id number]: George Henry on 04/30/18 5:49 pm * Is the patient Alert and Oriented? Yes * How many steps to enter\exit or inside your home? NONE * PCP [facility], [place] * Pharmacy [facility] [place] * Preadmission Environment Windows Deployment Technician Long Term * Facility Name [facility], [place] * ADLs Partial Dependent * Partial ADLs (Assistance needed) Ambulation Bathing Dressing Medication Management Transfers * Equipment Walker Wheelchair * Other Equipment ALL MEDICAL EQUIPMENT PROVIDED BY FACILITY * List name and contact numbers for known caregivers / representatives who currently or will assist patient after discharge: SANDY CHINCHILLA DTR, * Verbal permission to speak to the caregivers and representatives has been obtained from the patient. Yes * Community resources currently utilized Other * Please name any agencies selected above. OUTPATIENT DIALYSIS, [place], MWF, 1000 AM, [facility] * Additional services required to return to the preadmission environment? No * Can the patient safely return to the preadmission environment? Yes * Has this patient been hospitalized within the prior 30 days at any hospital? No Coverage Notice Reviewer: [id number] Tiara Henry Notice Issued Date-Time: 05/01/2018 15:45 Notice Type: IM Discharge Notice Notice Delivered To: Patient Relationship to Patient: Client Server Programmer Name: Delivery Method: HAND - Hand Delivered Shae Days: Prior Verbal Notification: Recipient Understood Notice: Yes Recipient Signature: Yes Med Rec Note Co-signed by Attending: Coverage Notice Comment: Last DP export: 05/01/18 3:06 pm Patient Name: THO SAEZ Page 74481 at 1102 All edits/amendments must be made on the electronic document DICTATION DATE: 05/04/181100 PUMP ERECTOR: MAXIMO 05/04/181100 RPT#: [id number] DC DATE:05/02/18 STATUS: DIS IN [facility] [address] [place] [address] END OF REPORT
[2018-05-05 05:14] LABS: HEPATITIS BE ANTIBODY Negative (Negative)
== END 2018-05-02 13:59 | DRG 70 ==
LOC: D.ER 22:36 → D.M2 04-30 01:15
PROVIDERS: Family Medicine; Internal Medicine Nephrology; ADMIT Family Medicine
PROC: 5A1D70Z Performance of Urinary Filtration, Intermittent, Less than 6 Hours Per Day (ICD-10-PCS; principal; 2018-04-30)
DX: G93.41 Metabolic encephalopathy (principal); N18.6 End stage renal disease; R40.2214 Coma scale, best verbal response, none, 24 hours or more after hospital admission; I13.2 Hypertensive heart and chronic kidney disease with heart failure and with stage 5 chronic kidney disease, or end stage renal disease; N25.81 Secondary hyperparathyroidism of renal origin; I50.9 Heart failure, unspecified; Z99.2 Dependence on renal dialysis; I69.319 Unspecified symptoms and signs involving cognitive functions following cerebral infarction; F01.50 Vascular dementia, unspecified severity, without behavioral disturbance, psychotic disturbance, mood disturbance, and anxiety; D63.1 Anemia in chronic kidney disease; N25.0 Renal osteodystrophy; R40.2363 Coma scale, best motor response, obeys commands, at hospital admission; R40.2144 Coma scale, eyes open, spontaneous, 24 hours or more after hospital admission